=== PATIENT | female | born 1995 | race Two or more races ===

== ENCOUNTER 2017-10-08 16:46 | Emergency (ER) | payer SELFPAY ==
[~2017-10-08] VITALS: Ht 154.9 cm; Wt 57.2 kg
[2017-10-08] MEDS ORDERED: NKM (17:32)
[2017-10-08] MEDS ORDERED: TYLENOL EXTRA500 MG ORAL (18:15)
[2017-10-08] MEDS ORDERED: LD2JL30 TOPIC (18:15)
--- NOTE | 2017-10-08 18:15 | Emergency Room Report ---
History of Present Illness General Chief Complaint: Fever Source: Patient Present Illness HPI 22 yo female patient presents to ER complaining of bumps in her mouth on her tongue for "a few days". Patient reports bump at the back of her tongue on the side that hurts when she talks and eats. Patient denies hx of trauma. Patient reports subjective fever during this time, denies chills. Patient reports bleeding; denies bleeding at this time. Patient denies history of STI or herpes. Patient denies chest pain, SOB, abdominal pain, vision changes, rash on body or face. Denies dysuria, hematuria, vaginal discharge. Allergies: Coded Allergies: No Known Allergies (Unverified , 10/08/17) Patient History Past Medical History: see triage record Last Menstrual Period: Aug Reviewed Nursing Documentation: PMH: Agreed, PSxH: Agreed Nursing Documentation-PMH Past Medical History: No Stated History Physical Exam Vital Signs Date Time Temp Pulse Resp B/P (MAP) Pulse Ox O2 Delivery O2 Flow Rate FiO2 10/08/17 17:27 98.3 70 16 117/70 99 Room Air 98.2 Sp02 EP Interpretation: reviewed, normal General Appearance: well appearing, no apparent distress, alert, GCS 15, non- toxic Head: normocephalic, atraumatic Eyes: bilateral eye normal inspection, bilateral eye PERRL ENT: hearing grossly normal, normal pharynx, no angioedema, normal voice, TMs + canals normal, uvula midline, moist mucus membranes, other - 1mm bump on right side of posterior tongue, consistent with color of tongue, no open sore, no laceration, no active bleeding, no blistering Neck: full range of motion Respiratory: lungs clear, normal breath sounds, no rhonchi, no respiratory distress, no accessory muscle use, no wheezing, speaking full sentences Cardiovascular #1: regular rate, rhythm, no edema Musculoskeletal: back normal, digits/nails normal, gait/station normal, normal range of motion, non-tender Neurologic: alert, oriented x3, responsive, motor strength/tone normal, sensory intact Psychiatric: mood/affect normal Skin: no rash Lymphatic: no adenopathy Medical Decision Making PA Attestation Dr. Steen is my supervising Physician whom patient management has been discussed with.a Diagnostic Impression: Primary Impression: Tongue sore ER Course Pt. presents to the ED c/o cold sore on mouth. Ddx considered but are not limited to atopic dermatitis, gingivostomatitis, pharyngitis, mechanical trauma Vital signs: are WNL, pt. is afebrile PE small bump on tongue, may be consistent with normal anatomy, no active bleeding present, no ulcers or sores present in mouth, tongue or pharynx. Instructed patient small cut may not be visible, may have been cause by tongue. Will continue to be painful while heals because tongue is constant motion with eating and drinking. Salt water gargles may help. Will provide medication. Followup with primary care provider for further treatment and referral. Followup with [facility] clinic for testing and treatment as needed. ORDERS: None required at this time, the diagnosis is clinical. ED INTERVENTIONS: None required at this time. DISCHARGE: -Rx given for Lidocaine to apply to area for local pain relief. -Rx given for Tylenol for pain relief. At this time pt. is stable for d/c to home. Patient is resting comfortably in no acute distress, nontoxic appearing, talking without difficulty. Will provide printed patient care instructions, and any necessary prescriptions. Patient instructed to follow with primary care provider in 3-5 days for further treatment and referral as needed. Informed patient breakouts may occur during periods of stress or illness. Discuss future treatment options to prevent breakouts with patient; informed patient to discuss with primary care provider. Care plan and follow up instructions have been discussed with the patient prior to discharge. Patient reports understanding and agreement to treatment plan. Patient questions asked and answered. ER precautions given, patient instructed to return to ER immediately for any new or worsening of symptoms. Last Vital Signs Date Time Temp Pulse Resp B/P (MAP) Pulse Ox O2 Delivery O2 Flow Rate FiO2 10/08/17 17:27 98.3 70 16 117/70 99 Room Air 98.2 Disposition: HOME, SELF-CARE Condition: Stable Scripts Lidocaine HCL 2% Jelly* (Lidocaine Jelly 2%*) 5 Ml Jel.pf.crescencio 5 ML TOPIC DAILY for 7 Days, ML Prov: Abelardo Candelaria.Sharri 10/08/17 Acetaminophen* (TYLENOL EXTRA STRENGTH*) 500 Mg Tablet 500 MG ORAL Q8H Y for Prn Headache/Temp > 101, #30 TAB 0 Refills Prov: Abelardo Candelaria 10/08/17 Patient Instructions: Stomatitis, [id number] Additional Instructions: Followup with primary care provider in 3 -5 days. Followup with STI clinic for further testing. Take medications as directed. Patient questions asked and answered. ER precautions given, patient instructed to return to ER immediately for any new or worsening of symptoms. Abelardo Candelaria Oct 08, 2017 18:15
[2017-10-08 18:54] VITALS: BP_SYST 115; BP_SYST 117; BP_DIAS 57; BP_DIAS 70
== END 2017-10-08 18:54 | disposition home or self-care (01) ==
LOC: EMR 18:00
DX: K13.79 Other lesions of oral mucosa (principal)
CPT/HCPCS: 99284